=== PATIENT | male | born 1960 | race Caucasian/White ===

== ENCOUNTER 2018-06-30 12:39 | Emergency (ER) | payer OTHER, MEDICARE ==
[~2018-06-30] VITALS: Ht 185.4 cm; Wt 83.9 kg
[2018-06-30] MEDS ORDERED: ATOR10 (12:46)
[2018-06-30] MEDS ORDERED: [UNRECOGNIZED DRUG - REMARK] (12:46)
[2018-06-30] MEDS ORDERED: ONDA4ODT MM (15:02)
[2018-07-01] MEDS ORDERED: LORA.5 PO (20:21)
[2018-07-02] MEDS ORDERED: NICO21TP TOP (09:59)
[2018-07-02] MEDS ORDERED: ACET325 PO (10:01)
== END 2018-06-30 16:10 | disposition home or self-care (01) ==
LOC: ER 12:39
DX: R51 Headache (principal); F32.9 Major depressive disorder, single episode, unspecified; Z88.2 Allergy status to sulfonamides; Z79.899 Other long term (current) drug therapy; V47.5XXA Car driver injured in collision with fixed or stationary object in traffic accident, initial encounter
CPT/HCPCS: 70450; 99284-25